=== PATIENT | female | born 1985 | race Caucasian/White ===

== ENCOUNTER 2024-11-16 01:39 | Day surgery (SDC) | payer BC, SELFPAY ==
[2024-11-15 16:18] VITALS: BP 137/80
[2024-11-15 16:46] LABS: % Basophils 0.5 % (0-2); % Eosinophils 1.5 % (0-6); % Immature Granulocytes 0.3 % (0-0.5); % Monocytes 7.3 % (1.7-9.3); % Neutrophils 69.4 % (42.2-75.2); Absolute Basophils 0.1 10^3/uL (0-0.2); Absolute Eosinophils 0.2 10^3/uL (0-0.7); Absolute Lymphocytes 2.1 10^3/uL (1.2-3.4); Absolute Monocytes 0.7 10^3/uL (0.1-0.6); Absolute Neutrophils 6.8 10^3/uL (1.4-6.5); Hematocrit 38.6 % (37.0-47.0); Hemoglobin 12.9 g/dL (12.0-16.0); Mean Corp Hgb Conc. 33.4 g/dL (33.0-37.0); Mean Corpuscular Hgb 29.9 pg (27.0-31.0); Mean Corpuscular Volume 89.6 fL (81.0-99.0); Mean Platelet Volume 9.7 fL (7.4-10.4); Nucleated Red Blood Cells % 0 %; Platelet Count 303 10^3/uL (130-400); Red Blood Cell Count 4.31 10^6/uL (4.20-5.40); Red Cell Dist. Width 12.7 % (11.5-14.5); White Blood Cell Count 9.8 10^3/uL (4.8-10.8)
[2024-11-15 17:02] LABS: ALT (SGPT) 13 U/L (0-35); AST (SGOT) 16 U/L (14-36); Albumin 3.9 g/dl (3.5-5.0); Alkaline Phosphatase 68 U/L (38-126); Blood Urea Nitrogen 12 mg/dl (7-17); Calcium 9.1 mg/dl (8.4-10.2); Carbon Dioxide 28 mmol/L (22-30); Chloride 106 mmol/L (98-107); Glucose 113 mg/dl (70-99); Lipase 302 U/L (23-300); Potassium 3.9 mmol/L (3.5-5.1); Sodium 140 mmol/L (135-145); Total Bilirubin 0.4 mg/dl (0.2-1.3); Total Protein 6.8 g/dl (6.3-8.2); eGFR > 60.00
[2024-11-15 17:04] LABS: Troponin I < 0.012 ng/ml
[2024-11-15 18:41] VITALS: BP 125/85; BMI 26.2
[2024-11-15 19:00] VITALS: BP 113/80
--- NOTE | 2024-11-15 19:12 | ED.GENMED ---
History of Present Illness
General
Chief Complaint: Chest Pain
Source: patient
Exam Limitations: none
Time Seen by Provider: 11/15/24 18:55
Nursing documentation reviewed up to this point in time: agreed with
History of Present Illness
History of Present Illness:
39-year-old female presents with for 5 days of upper abdominal pain mild nausea pain into her back up into her chest, somewhat related to eating she is on a GLP-1 for about 6 or 8 months none for a month or so no prior abdominal surgeries, no fever
or chills, does not drink or smoke
Past History
Past History
ED Past Surgical History: None; Negative Appendectomy or Cholecystectomy
Social History
Tobacco: Non-smoker
Alcohol: None
Drug: None
Personal:
Living: with family
Employment: Employed
Family History
Family History: Negative Diabetes, Hypertension or CAD
Review of Systems
Review of Systems
All Other Systems: Not applicable
Constitutional: Denies fever, fatigue or chills
EENT: Reports no symptoms
Respiratory: Reports no symptoms
Cardiac: Reports chest pain
ABD/GI: Reports abdominal pain
: Reports no symptoms
Musculoskeletal: Reports no symptoms
Skin: Reports no symptoms
Neurological: Reports no symptoms
Endocrine: Reports no symptoms
Phy Exam
Physical Exam
Physical Exam:
Physical Exam
General: 39-year-old female mild distress nontoxic
Neck: No jaundice
Heart: s1/s2 regular rate and rhythm, no murmur. equal radial pulses.
Lungs: no acute respiratory distress. clear bilaterally
Abdomen: Mild epigastric tenderness no guarding or rebound
Neuro: alert and oriented. no focal neurological deficits
Skin: no rash
Psychiatric: well kept. interactive and cooperative
Extremities: no edema.
Scores
Heart Score for Chest Pain Patients
STEMI patient?: No
History: Slightly or Non-Suspicious
ECG: Normal
Age: </= 45 years
Risk Factors: No Risk Factors
Troponin: </= Normal Limit
Heart Score for Chest Pain Patients: 0
Heart Score Risk: 2.5% MACE over next 6 weeks
Course
Orders/Labs/Results
Orders:
Orders
11/15/24 16:14
ECG [Electrocardiogram (*1)] Urgent
Reason for Study: Chest Pain
EKG- Treatment ONCE
11/15/24 16:33
Complete Blood Count/With Diff Urgent
Comprehensive Metabolic Panel Urgent
HCG, Serum Qualitative Screen Urgent
Comment: ADD ON
Lipase Urgent
Troponin I Urgent
11/15/24 19:08
0.9% Sodium Chloride 1000 ml [Nss] 1,000 ml IV BOLUS
Morphine Sulfate 4 mg IV NOW STA
Pantoprazole [Protonix IV] 40 mg IV NOW STA
11/15/24 19:10
CT Abd/Pel (IV only)-DH only Urgent
Comment:
Reason For Exam: upper pain
US Abdomen Complete/Upper Urgent
Comment:
Reason For Exam: pain
11/15/24 19:17
Add On- LAB Urgent
Tests Added?: HCG serum
Abnormal Lab Results
11/15/24
16:33
Absolute Neuts (auto) 6.8 H 10^3/uL
(1.4-6.5)
Absolute Monos (auto) 0.7 H 10^3/uL
(0.1-0.6)
Glucose 113 H mg/dl
(70-99)
Lipase 302 H U/L
(23-300)
11/15/24 16:33
11/15/24 16:33
Vital Signs
Initial and Last Documented VS:
Initial Vital Signs
Temp Pulse Resp BP Pulse Ox
98.4 F 87 18 137/80 98
11/15/24 16:18 11/15/24 16:18 11/15/24 16:18 11/15/24 16:18 11/15/24 16:18
Last Documented Vital Signs
Temp Pulse Resp BP Pulse Ox
98.4 F 77 10 113/80 99
11/15/24 16:18 11/15/24 22:45 11/15/24 22:45 11/15/24 19:00 11/15/24 22:45
MDM/Problems Addressed
Differential Diagnosis Includes:
Biliary colic pancreatitis reflux GERD ulcer disease, doubt ACS doubt
MDM/Problems Addressed:
Abdominal pain
Chronic conditions affecting care:
GLP-1
Acute Exacerbation and/or Progression of Chronic Illness:
GLP-1
*Radiology
Radiology exam reviewed: preliminary read by ED provider
*Pulse Oximetry
Patient hypoxic: no
*EKG
Interpreted by ED Provider?: Yes
Interpretation: normal
Comparison EKG: no comparison EKG present
Heart Rate: 78
Rate: normal
Rhythm: sinus
Ischemia: no ischemia
*Major Assembly Lineman Interpretation
Rate: normal
Interpretation: normal
Heart Rate: 78
Rhythm: sinus
*Critical Care Note
Total Time (30-74mins, 75-104mins- exclusive of procedures): Not Applicable
Update Note
Update Note:
Update, labs are noted ultrasound noted patient feeling better still with upper quadrant pain I suspect this is biliary colic, reviewed and patient with outpatient management, this point ibuprofen in the hospital to control her symptoms consult
surgery
ED Attending Note
-
Portions of this chart may have been created with voice recognition software.� Occasional wrong word or��sound alike� substitutions may have occurred due to the inherent limitations of voice recognition software.
Discharge Plan
Departure
Patient Disposition: Admit
Date of Disposition: 11/15/24
Time of Disposition: 23:34
Admit to: Med/Surg
Presentation/result/management discussed w/ accepting MD/DO: lary
Patient with high blood pressure during this ER visit?: No
Covid-19: Not Applicable
Discharge Problem:
Symptomatic cholelithiasis
Prescriptions:
No Action
citalopram 20 MG tablet
10 mg PO DAILY
prochlorperazine maleate 10 MG tablet
10 mg PO Q8HPRN PRN (Reason: headaches and nausea) Qty: 10 1RF
Referrals:
Coleman Hicks DO [Family Provider] -
Interventions
Interventions:
*Risk Screen - Suicide Last Done: 11/15/24 16:18
*General Assessment Last Done: 11/15/24 16:18
*Neglect/Abuse Screening Last Done: 11/15/24 16:18
*ED- Fall Risk Assessment Last Done: 11/15/24 16:18
*ED COVID-19 Vaccine History Last Done: 11/15/24 16:18
ED- Cardiac Assessment Last Done: 11/15/24 18:42
Discharge Date and Time
Print Language: KAZAKH
[2024-11-15] MEDS: MORPHINE SULFATE 4 MG IV (19:28)
[2024-11-15] MEDS: PROTONIX IV 40 MG IV (19:28)
[2024-11-15] MEDS: NSS 1000 IV (19:28)
[2024-11-15 19:47] LABS: HCG, Serum Qualitative Screen Negative
[2024-11-16] VITALS (19 sets, daily range): BP systolic 90–138; BP diastolic 57–90; BMI 27.0
--- NOTE | 2024-11-16 01:57 | HPS.HSE ---
Addendum entered and electronically signed by Jose Minaya MD 11/16/24 11:53:
I saw and examined the patient independently.
The Aviation Safety Technician's note was reviewed and I agree with the note, assessment and plan except where noted below.
Comment: This is a 39-year-old female who comes in with 1 week of postprandial right upper quadrant pain. Exam, imaging, blood work all consistent with acute cholecystitis.
Will plan for a laparoscopic cholecystectomy with cholangiogram in the OR today.
N.p.o., IV fluids, IV antibiotics ordered.
Risks/Benefits/Alternatives, expected postoperative course and possible complications (bleeding, infection, injury to surrounding structures, acute/chronic pain) discussed at length. Patient wishes to proceed with surgery. All questions answered.
Consent obtained.
I spent 45 minutes in total for the care of this patient today including direct patient care and counseling, reviewing labs, imaging, coordination of care, as well as documentation.
Original Note:
Family Physician
-
Family Physician: Coleman Hicks
Chief Complaint
-
upper abdominal pain
History of Present Illness
This is a pleasant 39 year old female who comes in to ED with about a week's worth of nausea, upper abdominal pain radiating to her chest and back made worse by eating. No significant PMH but had used GLP-1 medication for 6-8 months (last being over
one month ago).
Medical History
Past Medical History
Past Medical History: Reports Psychiatric (anxiety)
Past Surgical History: Reports None
Social History
Tobacco: Non-smoker
Alcohol: None
Drug: None
Personal:
Living: With Family
Employment: Employed
Family History
Family History: Not pertinent (nothing significant)
Allergies / Home Medications
Allergies reflects when Allergies were last updated in [employer].
Home Medications with original date entered in [employer]
Allergy/Medication List:
Allergies
Allergy/AdvReac Type Severity Reaction Status Date / Time
No Known Allergies Allergy Verified 02/27/19 09:31
Home Medications
citalopram 20 mg tablet 10 mg PO DAILY 11/20/14
prochlorperazine maleate 10 mg tablet 10 mg PO Q8HPRN PRN headaches and nausea #10 tabs 10/17/18
Review of Systems
-
History Source: Patient and Coordinated Provider
Constitutional: Reports No Symptoms
EENT: Reports No Symptoms
Respiratory: Reports No Symptoms
Cardiac: Reports No Symptoms
Abdomen/GI: Reports Abdominal Pain
: Reports No Symptoms
Musculoskeletal: Reports No Symptoms
Skin: Reports No Symptoms
Neurological: Reports No Symptoms
Endocrine: Reports No Symptoms
Hematologic/Lymphatic: Reports No Symptoms
Psych: Reports No Symptoms
Physical Exam
Vital Signs
Vital Signs
Temp Pulse Resp BP Pulse Ox
97.9 F 74 16 112/74 100
11/16/24 01:52 11/16/24 01:52 11/16/24 01:52 11/16/24 01:52 11/16/24 01:52
Physical Exam
General: Well Developed, Well Nourished, No Apparent Distress and Comfortable
HEENT: NormoCephalic, Moist mucous membranes, Atraumatic and PERRLA
Respiratory: Clear and Non Labored Respirations
Cardiac: S1/S2 and Regular Rhythm
Breast: Deferred by me
GI: Soft, Non Distended and Tender (upper abdomen)
Rectal: Deferred by Provider
Genito-urinary: Clear Urine
Musculoskeletal: No Clubbing, No Cyanosis and No Edema
Skin: Warm and Dry
Neuro: Awake, Alert, AO x 3, No Motor Deficits and Nonfocal/grossly intact
Hematologic/Lymphatic: No Lymphadenopathy
Psych: Calm
Laboratory Results
-
11/15/24 16:33
11/15/24 16:33
Laboratory Results
Total Bilirubin 0.4 mg/dl (0.2-1.3) 11/15/24 16:33
AST 16 U/L (14-36) 11/15/24 16:33
ALT 13 U/L (0-35) 11/15/24 16:33
Alkaline Phosphatase 68 U/L (38-126) 11/15/24 16:33
Troponin I < 0.012 ng/ml 11/15/24 16:33
Lipase 302 U/L (23-300) H 11/15/24 16:33
Data Reviewed
-
CT Scan: Report Reviewed by me
Ultrasound: Report Reviewed by me
Lab Data: Labs Reviewed by me
Old Records: Reviewed
Impression/Plan
-
IMPRESSION: acute symptomatic cholelithiasis
PLAN: This is a pleasant 39 year old female who comes in to ED with about a week's worth of nausea, upper abdominal pain radiating to her chest and back made worse by eating. No significant PMH but had used GLP-1 medication for 6-8 months (last
being over one month ago).
*Acute symptomatic cholelithiasis: NPO, NS IVF, Morphine IV prn
*Elevated lipase: Trend
*Anxiety: Resume citalopram when taking po.
*DVT prophylaxis: SCDs, TEDs OOB ad aj.
*Disposition: FC. General surgery service.
--- NOTE | 2024-11-16 03:00 | PTCARENOTE ---
pt aaox3, abd tender. pt states she doesn't need anything for pain at the moment. pt oriented to room w/ call andrade in reach.
[2024-11-16] MEDS: NSS 1000 IV (03:34)
[2024-11-16] MEDS: WELLBUTRIN SR (12 hour sustained release) 100 MG PO (09:04)
[2024-11-16] MEDS: CELEXA 10 MG PO (09:12)
[2024-11-16] MEDS: CEFOTAN 2000 MG IV ×2 (10:03→23:01)
[2024-11-16] MEDS: STERILE WATER FOR INJECTION 10 ML IV ×2 (10:04→23:01)
--- NOTE | 2024-11-16 10:22 | W.SUR.PREOP ---
Pre-Operative Surgical Note
-
I have examined this patient prior to the performance of the scheduled procedure.
The patient's condition is unchanged from the time of the current History and
Physical and the patient is able to undergo the scheduled procedure.
--- NOTE | 2024-11-16 10:39 | CM ---
Reviewed the chart notes and spoke with the patient and spouse at the bedside. The patient is admitted under observational status. The observation letter was provided and explained. The patient had no questions with regards to the letter.
The patient resides with her spouse in a two story home with three steps to enter. The patient reports no DME or SNF in the past, but did have VN post delivery of children. The patient confirmed her pharmacy of choice is [facility]. Patient
anticipates going to the OR today for lap nataly. CM continues to be available to patient/family and is monitoring medical plan for needs at discharge.
Plan: Discharge to home when medically stable. No needs anticipated.
--- NOTE | 2024-11-16 12:55 | W.IMMPOSTOP ---
Surgical Immed Post Op Note
-
Primary Surgeon: Jose Minaya MD
Assisting Surgeon: None
Pre-op Diagnosis: Acute cholecystitis
Post-op Diagnosis: Same
Procedure Performed: Laparoscopic cholecystectomy with cholangiogram
Anesthesia Type: General
Specimen / Cultures: Gallbladder and contents
Estimated Blood Loss: 7 cc
Complications: None
Operative Findings: Distended and edematous gallbladder. Critical view of safety obtained prior to a cholangiogram which demonstrated no filling defects and normal biliary anatomy. Duct and artery ligated with 2 titanium clips.
POST OP PLAN:
Imaging: None
Labs: Routine AM
Diet: Advance to Regular as tolerated
Analgesia: Tylenol 650mg q6 Sharlene, Silvina 5mg q6 PRN, Dilaudid 0.5mg q2h PRN
Neuro/vascular checks: q4h
AC/AP: Hold Therapeutic AC, Ok for DVT PPx
Activity: Ad [place]
Wound/Incisions/Drains: Routine
Abx: Will continue antibiotics while admitted inpatient.
Dispo: RNF, anticipate discharge home tonight versus tomorrow pending clinical course.
--- NOTE | 2024-11-16 12:56 | OR.RPT ---
Operative Report
Operative Report
Patient Name: Marybel East
: 1985
Date of Operation: 11/16/2024
Preoperative Diagnosis: Acute cholecystitis
Postoperative Diagnosis: Same
Procedure(s):
Laparoscopic Cholecystectomy with Cholangiogram
Surgeon(s):
Dr. Minaya
[facility] Owner(s):
LETI Guerrier
Anesthesia: General
Estimated Blood Loss: 7 cc
Urine Output: None
Drains/Lines/Implants: None
Specimens:
1. Gallbladder and contents
HPI/Surgical Indications:
This is a 39-year-old female who presents with 5 days of postprandial right upper quadrant abdominal pain. Exam, labs and imaging are consistent with early acute cholecystitis. Risks/Benefits/Alternatives were discussed at length, and the patient
agreed to proceed with surgery.
Operative Findings: Distended and edematous gallbladder. Critical view of safety obtained prior to a cholangiogram which demonstrated no filling defects and normal biliary anatomy. Duct and artery ligated with 2 titanium clips.
Procedure Description:
The patient was brought to the Operating Room and placed in the supine position with one arm tucked. Following uneventful induction of general endotracheal anesthesia, an orogastric tube was placed. The abdomen was prepped and draped in the usual
sterile fashion. A timeout was performed confirming the procedure, consent, and that IV antibiotics were infused and sequential compression devices were confirmed to be on. The abdomen was entered using an infraumbilical open [place] technique with
a 12 mm balloon-tipped trocar. Pneumoperitoneum to 15 mmHg pressure was obtained without difficulty and we confirmed that no injury had occurred during our entry. The patient was positioned in reverse Trendelenberg and rotated with the right side
up slightly. Three (3) 5mm trocars were then placed along the right subcostal margin. The gallbladder was distended and inflamed. A locking grasping forceps was placed on the fundus of the gallbladder where it was then retracted cephalad and to
the right. Using appropriate grasping instruments, the peritoneum overlying the triangle of Calot was incised and extended superiorly on both the anterior and posterior gallbladder kauffman. The infundibulum was dissected off the cystic plate. The
cystic triangle was dissected until a critical view of safety was achieved. The cystic artery was medialized, dissected and controlled with 2 proximal clips and 1 distal. The cystic duct/gallbladder junction in turn was identified, dissected
circumferentially and a clip was placed. A ductotomy was made and a cholangiocatheter on an Delgado clamp was inserted into the cystic duct. A C-arm was draped and brought into the field. An intra-operative cholangiogram was performed and was noted to
have:
No filling defects in the biliary tree
No significant biliary dilation
Brisk flow of contrast into the duodenum
Normal biliary anatomy
The catheter was then removed and the cystic duct was controlled with two clips. After ensuring both the artery and duct were divided, the gallbladder was freed from the liver using electrocautery. There was no spillage of bile or stones. The
gallbladder bed was inspected and excellent hemostasis was obtained. The gallbladder was extracted through the 12 mm trocar site using an endocatch bag. The abdomen was again irrigated and excellent hemostasis was assured. All remaining trocars
were then removed and the pneumoperitoneum was evacuated. The 12 mm trocar site was closed using 0 PDS suture. All trocar sites were closed at the skin level using 4-0 Monocryl followed by Dermabond. Overall, the patient tolerated the procedure
well and was taken to the Recovery Room postoperatively in stable condition.
I was the attending physician and performed the procedure with assistance from the DIRECTOR BIOINFORMATICS above. I was present for all portions of the case, excluding skin closure.
Jose Minaya MD
[2024-11-16] MEDS: DILAUDID 0.25 MG IV ×2 (13:20→13:32)
[2024-11-16] MEDS: TORADOL 15 MG IV (15:39)
[2024-11-16] MEDS: TYLENOL 1000 MG PO (19:41)
[2024-11-16] MEDS: ROXICODONE 5 MG PO (19:41)
[2024-11-17] MEDS: NSS 1000 IV (01:21)
[2024-11-17] MEDS: ROXICODONE 5 MG PO ×2 (01:50→11:25)
[2024-11-17 03:35] VITALS: BP 88/54
[2024-11-17 04:47] VITALS: BP 102/62
[2024-11-17 07:40] VITALS: BP 108/72
[2024-11-17 07:55] LABS: ALT (SGPT) 25 U/L (0-35); AST (SGOT) 31 U/L (14-36); Albumin 3.3 g/dl (3.5-5.0); Alkaline Phosphatase 68 U/L (38-126); Blood Urea Nitrogen 5 mg/dl (7-17); Calcium 8.8 mg/dl (8.4-10.2); Carbon Dioxide 27 mmol/L (22-30); Chloride 108 mmol/L (98-107); Estimated Creatinine Clearance 112 ml/min; Glucose 71 mg/dl (70-99); Potassium 4.2 mmol/L (3.5-5.1); Sodium 140 mmol/L (135-145); Total Bilirubin 0.5 mg/dl (0.2-1.3); Total Protein 5.7 g/dl (6.3-8.2); eGFR > 60.00
--- NOTE | 2024-11-17 09:19 | W.PN.GS2 ---
Today's Communication / Plan
-
-- DC today
Assessment / Plan
-
Patient is a 39 yo F POD#1 s/p laparoscopic cholecystectomy with IOC
AVSS
No repeat labs
Recovering well. No postoperative concerns.
-- Regular diet
-- Pain control: Tylenol, Toradol, Oxycodone
-- Abx: Cefotetan while in patient
-- HLIV
-- Home meds
-- DVT: SCDs
-- DC today
Subjective Data
-
Date of Service: November 17, 2024
Reports some abdominal soreness, but pain overall controlled. No nausea or vomiting., Has yet to have breakfast. No fevers. Minimal ambulation.
Objective Data
-
Intake and Output
11/16/24 11/17/24 11/18/24
06:59 06:59 06:59
Intake Total 300 / 300 2820 / 2820
Balance 300 / 300 2820 / 2820
Intake:
Oral fluids 0 / 0 1560 / 1560
IV fluids (Total) 300 / 300 1260 / 1260
Other:
Number of approximated MODERATE 2 2
amounts of urine
Vital Signs
Temp Pulse Resp BP Pulse Ox
98.3 F 79 16 108/72 98
11/17/24 07:40 11/17/24 07:40 11/17/24 07:40 11/17/24 07:40 11/17/24 07:40
Lab Results
11/15/24 16:33
11/17/24 05:17
Calcium 8.8 mg/dl (8.4-10.2) 11/17/24 05:17
Total Bilirubin 0.5 mg/dl (0.2-1.3) 11/17/24 05:17
AST 31 U/L (14-36) 11/17/24 05:17
ALT 25 U/L (0-35) 11/17/24 05:17
Alkaline Phosphatase 68 U/L (38-126) 11/17/24 05:17
Total Protein 5.7 g/dl (6.3-8.2) L 11/17/24 05:17
Albumin 3.3 g/dl (3.5-5.0) L 11/17/24 05:17
Physical Exam
-
Gen: NAD
Abd: soft, mild tenderness, ND, non-peritoneal, incisions c/d/i - no erythema, ecchymosis or drainage
Patient has a nazario catheter: No
Patient has a central line: No
--- NOTE | 2024-11-17 09:26 | CM ---
Chart reviewed and plan is home today, no needs.
Plan; Home with spouse no needs.
[2024-11-17] MEDS: CELEXA 10 MG PO (09:53)
[2024-11-17] MEDS: WELLBUTRIN SR (12 hour sustained release) 100 MG PO (09:53)
[2024-11-17] MEDS: TYLENOL 1000 MG PO (10:03)
[2024-11-17] MEDS: STERILE WATER FOR INJECTION 10 ML IV (10:04)
[2024-11-17] MEDS: CEFOTAN 2000 MG IV (10:04)
[2024-11-17 11:30] VITALS: BP 116/76
== END 2024-11-17 13:00 | disposition home or self-care (01) ==
LOC: PACU 01:39
PROVIDERS: Registered Nurse; EMERGENCY PHYSICIAN Emergency Medicine; FAMILY PHYSICIAN Family Medicine
DX: K81.1 Chronic cholecystitis (principal)
CPT/HCPCS: 47563; 88304; 74177; 74300; 76000; 76700; 80053; 83690; 84484; 84703; 85025; 93005; 96361; 96374; 96375; 99285; A4300; Q9967

== ENCOUNTER 2025-01-27 10:27 | Emergency (ER) | payer SELFPAY ==
[2025-01-27 10:34] VITALS: BP 105/72
[2025-01-27] MEDS: MOTRIN 600 MG PO (11:18)
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
== END 2025-01-27 12:51 | disposition home or self-care (01) ==
LOC: EMR 10:27
PROVIDERS: EMERGENCY PHYSICIAN Emergency Medicine; FAMILY PHYSICIAN Family Medicine
DX: S16.1XXA Strain of muscle, fascia and tendon at neck level, initial encounter (principal); S90.31XA Contusion of right foot, initial encounter; R07.89 Other chest pain; V47.5XXA Car driver injured in collision with fixed or stationary object in traffic accident, initial encounter
CPT/HCPCS: 99284; 71046; 73630; 93005